=== PATIENT | male | born 1975 | race Two or more races ===

== ENCOUNTER 2019-11-08 22:50 | Emergency (ER) | payer MEDICAID ==
[2019-11-08] MEDS ORDERED: Amoxicillin/Clavulanate K 875-125 MG Tab PO ONE (23:22)
[2019-11-08] MEDS ORDERED: Ketorolac 60 MG/2 ML SDV IM ONE (23:24)
--- NOTE | 2019-11-08 23:31 | EDM.PDOC ---
ED HPI GENERAL MEDICAL PROBLEM - General Chief Complaint: General Stated Complaint: SINUS PRESSURE Time Seen by Provider: 11/08/19 23:00 Source of Information: Reports: Patient History Limitations: Reports: No Limitations - History of Present Illness INITIAL COMMENTS - FREE TEXT/NARRATIVE: Patient presented to the ED because of frontal and faci pain which started 3 days ago. He also c/o foul smelling greenish discharge. there is no associated fever or chills. Frontal Headache with sinus pressure Pain Score (Numeric/FACES): 8 - Related Data Allergies Allergy/AdvReac Type Severity Reaction Status Date / Time No Known Allergies Allergy Verified 11/08/19 22:57 Home Meds: Home Meds Amoxicillin/Clavulanate K [Augmentin 875-125 MG] 1 tab PO BID #14 tablet 11/08/19 [Rx] Fluticasone Propionate [Flonase] 1 squirt NASBOTH BID #1 bottle 11/08/19 [Rx] Fluticasone Propionate [Flonase] 2 puff .XX BID PRN 11/08/19 [History] Phenylephrine HCl/Acetaminophn [Sudafed PE Sinus Pressure Tab] 1 tab BID PRN 11/08/19 [History] guaiFENesin [Mucinex] 600 mg PO BID #10 tab.er 11/08/19 [Rx] Past Medical History HEENT History: Reports: Sinusitis Respiratory History: Reports: Asthma Musculoskeletal History: Reports: Fracture Other Musculoskeletal History: hx fx L wrist Neurological History: Reports: Migraines Endocrine/Metabolic History: Reports: Obesity/BMI 30+ - Infectious Disease History Infectious Disease History: Reports: Chicken Pox - Past Surgical History HEENT Surgical History: Reports: Adenoidectomy, Tonsillectomy Social & Family History - Family History Family Medical History: Noncontributory - Tobacco Use Smoking Status *Q: Current Every Day Smoker Years of Tobacco use: 31 Packs/Tins Daily: 1 - Caffeine Use Caffeine Use: Reports: Coffee, Soda - Recreational Drug Use Recreational Drug Use: No ED ROS GENERAL - Review of Systems Review Of Systems: See Below Constitutional: Reports: No Symptoms HEENT: Reports: Sinus Problem Respiratory: Reports: No Symptoms Cardiovascular: Reports: No Symptoms Endocrine: Reports: No Symptoms GI/Abdominal: Reports: No Symptoms : Reports: No Symptoms Musculoskeletal: Reports: No Symptoms Skin: Reports: No Symptoms Neurological: Reports: No Symptoms ED EXAM, GENERAL - Physical Exam Exam: See Below Exam Limited By: No Limitations General Appearance: Alert, No Apparent Distress Ears: Normal External Exam, Normal Canal Nose: Normal Inspection, Normal Mucosa, No Blood Throat/Mouth: Normal Inspection, Normal Lips, Normal Teeth Head: Atraumatic, Normocephalic Neck: Normal Inspection, Supple, Non-Tender Respiratory/Chest: No Respiratory Distress, Lungs Clear, Normal Breath Sounds Cardiovascular: Normal Peripheral Pulses, Regular Rate, Rhythm, No Edema, No Gallop GI/Abdominal: Normal Bowel Sounds, Soft, Non-Tender, No Organomegaly Back Exam: Normal Inspection, Full Range of Motion Extremities: Normal Inspection, Normal Range of Motion Course - Vital Signs Text/Narrative:: norco 5/325, 2 po x1 augmentin 875 mg po x1 toradol 60 mg IM x1 Last Recorded V/S: Last Vital Signs Temp 36.7 C 11/08/19 22:52 Pulse 76 11/09/19 00:05 Resp 20 11/09/19 00:05 BP 136/81 11/09/19 00:05 Pulse Ox 99 11/09/19 00:05 - Orders/Labs/Meds Meds: Medications Discontinued Medications Generic Name Dose Route Start Last Admin Trade Name Freq PRN Reason Stop Dose Admin Hydrocodone Bitart/Acetaminophen 2 tab 11/08/19 23:36 11/08/19 23:47 Heber 325-5 Mg PO 11/08/19 23:37 2 tab NOW STA Administration Amoxicillin/Clavulanate Potassium 1 tab 11/08/19 23:22 11/08/19 23:47 Augmentin 875 Mg/125 Mg PO 11/08/19 23:23 1 tab ONETIME ONE Administration Ketorolac Tromethamine 60 mg 11/08/19 23:24 11/08/19 23:47 Toradol IM 11/08/19 23:25 60 mg ONETIME ONE Administration Departure - Departure Time of Disposition: 00:00 Disposition: Home, Self-Care 01 Condition: Good Clinical Impression: Sinusitis, Sinusitis - Discharge Information Prescriptions: Amoxicillin/Clavulanate K [Augmentin 875-125 MG] 1 tab PO BID #14 tablet Fluticasone Propionate [Flonase] 1 squirt NASBOTH BID #1 bottle guaiFENesin [Mucinex] 600 mg PO BID #10 tab.er Instructions: Acetaminophen; Hydrocodone tablets or capsules, Amoxicillin; Clavulanic Acid tablets, Ketorolac injection, Sinusitis, Adult, [id number] Referrals: PCP,None [Primary Care Provider] - Forms: ED Department Discharge Additional Instructions: Please read discharge instructions on sinusitis Increase oral fluids Flonase nasal spray, 1 spray intranasal twice daily for 7 days Augmentin 875 mg twice daily for 7 days Mucinex 600 mg twice daily for 7 days Follow up as needed Sepsis Event Note (ED) - Evaluation Sepsis Screening Result: No Definite Risk - Focused Exam Vital Signs: Vital Signs Temp Pulse Resp BP Pulse Ox 11/09/19 00:05 76 20 136/81 99 11/08/19 22:52 36.7 C 89 20 145/73 H 97
[2019-11-08] MEDS ORDERED: Acetaminophen/HYDROcodone 325-5 MG Tab PO STA (23:36)
== END 2019-11-09 00:12 | disposition home or self-care (01) ==
LOC: FB.ED 22:50
DX: J32.9 Chronic sinusitis, unspecified (principal); F17.210 Nicotine dependence, cigarettes, uncomplicated; E66.9 Obesity, unspecified; Z79.899 Other long term (current) drug therapy; Z68.36 Body mass index [BMI] 36.0-36.9, adult
CPT/HCPCS: 96372; 99283; A9270; J1885